=== PATIENT | male | born 1990 | race Two or more races ===

== ENCOUNTER 2024-05-12 08:39 | Day surgery (SDC) | payer BC ==
[2024-05-12] MEDS ORDERED: PROPOFOL 20 ML ONE (10:06)
[2024-05-12] MEDS ORDERED: Lidocaine 1% PF 5 ML VIAL ONE (10:08)
[2024-05-12] MEDS ORDERED: Sodium Chloride 0.9% 100 ML ONE (10:59)
[2024-05-12] MEDS ORDERED: Piperacillin/Tazobactam 3.375 GM VIAL ONE (10:59)
[2024-05-12] MEDS ORDERED: Bupivacaine 0.25% HCL 30 ML VIAL ONE (11:05)
[2024-05-12] MEDS ORDERED: EPINEPHrine 1 MG/ML VIAL ONE (11:05)
[2024-05-12] MEDS ORDERED: fentaNYL PF 100 MCG/2 ML SYRINGE ONE (11:05)
[2024-05-12] MEDS ORDERED: SUCCINYLCHOLINE/SOD CL,ISO/PF 200 MG/10 ML SYRINGE FS ONE (11:54)
[2024-05-12] MEDS ORDERED: Ondansetron PF 4 MG/2 ML Vial ONE (12:04)
[2024-05-12] MEDS ORDERED: Dexamethasone 4 mg/ml Vial ONE (12:04)
[2024-05-12] MEDS ORDERED: Rocuronium Bromide 10 MG/ML (10ML VIAL) ONE (12:05)
[2024-05-12] MEDS ORDERED: PROPOFOL 200 MG/20 ML VIAL ONE (12:05)
[2024-05-12] MEDS ORDERED: Glycopyrrolate 0.2 MG/ML 5 ML SYRINGE ONE (12:14)
[2024-05-12] MEDS ORDERED: SUGAMMADEX SODIUM 200 MG/2 ML VIAL ONE (12:29)
[2024-05-12] MEDS ORDERED: Meperidine HCl/PF 25 MG (1 mL) VIAL ONE (12:41)
== END 2024-05-12 14:10 | disposition home or self-care (01) ==
LOC: SDC 08:39
PROVIDERS: ATTEND Surgery
PROC: 0DTJ4ZZ Resection of Appendix, Percutaneous Endoscopic Approach (ICD-10-PCS; principal; 2024-05-12)
DX: K35.80 Unspecified acute appendicitis (principal); Z98.890 Other specified postprocedural states; Z79.899 Other long term (current) drug therapy
CPT/HCPCS: 88304; A4314; A4649; C1776; J0171; J0665; J1100; J2175; J2405; J2543; J2704